=== PATIENT | male | born 1945 | race Caucasian/White ===

== ENCOUNTER 2016-02-23 10:20 | Emergency (ER) | payer MEDICARE, BC ==
[2016-02-23 10:46] VITALS: BP 74/48
--- NOTE | 2016-02-23 11:37 | UC ---
UC General HPI - HPI Summary HPI Summary: PT C/O INCREASED FATIGUE OVER THE PAST FEW MONTHS. HAS HAD INCREASE IN FALLS OVER PAST SEVERAL WEEKS. LAST FALL WAS LAST NIGHT - HAS LEG PAIN AND LEFT ANKLE PAIN. C/O WORSENING VISION AND FAMILY REPORTS HE IS HAVING SOME CONFUSION RECENTLY. APPETITE IS DOWN. NO FEVER. NO MEDICAL CARE IN OVER 3 YEARS. TAKES HIS BP MEDS BUT DOES NOT MONITOR HIS BP AT ALL. - History of Current Complaint Chief Complaint: UCGeneralIllness Stated Complaint: GENERALIZED WEAKNESS Time Seen by Provider: 02/23/16 11:27 Hx Obtained From: Patient, Family/Command And Control - Onset/Duration: Gradual Onset, Lasting Weeks, Still Present Timing: Constant Onset Severity: Moderate Current Severity: Moderate Pain Intensity: 5 Associated Signs & Symptoms: Positive: Confusion, Dizziness, Decreased Oral Intake, Weakness - Allergy/Home Medications Allergies/Adverse Reactions: Allergies Allergy/AdvReac Type Severity Reaction Status Date / Time No Known Allergies Allergy Verified 02/23/16 10:46 Home Medications: Home Medications Lisinopril/HCTZ 20/12.5(NF) [Zestoretic 20/12.5(NF)] 1 tab PO DAILY 02/23/16 [ History Confirmed 02/23/16] Simvastatin (NF) [Zocor (NF)] 80 mg PO 1700 02/23/16 [History Confirmed 02/23/16 ] PMH/Surg Hx/FS Hx/Imm Hx Endocrine History Of: Reports: Dyslipidemia Cardiovascular History Of: Reports: Hypertension - Surgical History Surgical History: None - Family History Known Family History: Negative: Hypertension, Diabetes - Social History Alcohol Use: Occasionally Substance Use Type: None Smoking Status (MU): Former Smoker Review of Systems Constitutional: Fatigue, Other - WEAK AND DIZZY Respiratory: Negative Cardiovascular: Negative Gastrointestinal: Negative All Other Systems Reviewed And Are Negative: Yes Physical Exam Triage Information Reviewed: Yes Appearance: Well-Appearing, No Pain Distress, Well-Nourished Vital Signs: Initial Vital Signs Temp 97.3 F 02/23/16 10:39 Pulse 84 02/23/16 10:39 Resp 18 02/23/16 10:39 BP 74/48 02/23/16 10:39 Pulse Ox 96 02/23/16 10:39 Vital Signs Reviewed: Yes Eyes: Positive: Conjunctiva Clear ENT: Positive: Hearing grossly normal Neck: Positive: Supple, Nontender, No Lymphadenopathy Respiratory Exam: Normal Cardiovascular Exam: Normal Abdomen Description: Positive: Soft Neurological: Positive: Alert Psychological: Positive: Normal Response To Family, Age Appropriate Behavior Skin: Negative: rashes Diagnostics - EKG Cardiac Rate: NL - 81 Cardiac Rhythm: Sinus: Normal Ectopy: None ST Segment: Normal Course/Dx - Differential Dx - Multi-Symptom Provider Diagnoses: HYPOTENSION, DIZZY - Physician Notifications Discussed Patient Care With: DR. HOPE Time Discussed With Above Provider: 11:55 Instructed by Provider To: Transfer - TO [facility] [place] ER BY PRIVATE CAR Discharge - Discharge Plan Condition: Stable Disposition: TRANS [facility]HER [facility] Referrals: Sravan Jang MD [Primary Care Provider] -
== END 2016-02-23 11:55 | disposition short-term general hospital (02) ==
LOC: UCEAST 10:20
DX: I95.9 Hypotension, unspecified (principal); R42 Dizziness and giddiness; Z87.891 Personal history of nicotine dependence
CPT/HCPCS: 93005

== ENCOUNTER 2016-02-23 12:22 | Inpatient (IN) | payer MEDICARE, BC ==
[2016-02-23 13:00] LABS: Hematocrit 41 % (42-52); Hemoglobin 13.6 g/dl (14.0-18.0); Mean Corpuscular HGB Conc 33 g/dl (31-36); Mean Corpuscular Hemoglobin 31 pg (27-31); Mean Corpuscular Volume 93 fL (80-94); Mean Platelet Volume 12 um3 (7.4-10.4); Red Blood Count 4.39 10^6/ul (4.0-5.4); Red Cell Distribution Width 12 % (10.5-15); White Blood Count 11.3 10^3/ul (3.5-10.8)
[2016-02-23 13:12] LABS: BUN/Creatinine Ratio 22.3 (8-20); Calcium 9.4 mg/dL (8.6-10.3); Globulin 2.9 g/dL (2-4); Potassium 4.7 mmol/L (3.5-5.0); Total Protein 6.9 g/dL (6.4-8.9)
[2016-02-23] MEDS ORDERED: NS 0.9% 1000 ML* 1,000 ML IV ONE ×2 (13:12→18:31)
[2016-02-23 13:15] LABS: Troponin I 0.01 ng/mL (<0.04)
--- NOTE | 2016-02-23 13:16 | RAD ---
Indication: Dizziness, weakness. Low blood pressure. Comparison: None. Technique: Upright AP 1306 hours Report: Mild elevation of the LEFT hemidiaphragm with associated minimal LEFT basilar atelectasis. The lungs and pleural spaces are otherwise clear. Negative for pneumothorax. Negative for cardiomegaly. Unremarkable central pulmonary vasculature and mediastinal contours accounting for AP technique. IMPRESSION: Minimal LEFT basilar atelectasis secondary to mild diaphragmatic elevation. No significant abnormality.
[2016-02-23 13:31] LABS: C Reactive Protein 26.72 mg/L (< 5.00)
[2016-02-23] MEDS ORDERED: NS 0.9% 1000 ML* 2,000 ML IV ONE (13:42)
--- NOTE | 2016-02-23 13:56 | RAD ---
HISTORY: Weakness, multiple falls COMPARISONS: None TECHNIQUE: Multiple contiguous axial CT scans were obtained of the head without intravenous contrast. FINDINGS: HEMORRHAGE/INFARCT: There is no hemorrhage or acute infarct. MASSES/SHIFT: There is no mass or shift. EXTRA-AXIAL SPACES: There are no extra-axial fluid collections. SULCI AND VENTRICLES: The sulci and ventricles are normal in size and position for the patient's stated age. CEREBRUM: There are no focal parenchymal abnormalities. BRAINSTEM: There are no focal parenchymal abnormalities. CEREBELLUM: There are no focal parenchymal abnormalities. VESSELS: The vessels are grossly normal. PARANASAL SINUSES: The paranasal sinuses are clear. ORBITS: The orbits are unremarkable. BONES AND SOFT TISSUE: No bone or soft tissue abnormalities are noted. OTHER: None IMPRESSION: NO ACUTE INTRACRANIAL PATHOLOGY.
[2016-02-23] MEDS ORDERED: Insulin REGULAR(*) 100 UNITS in NS 0.9% 100 ML* 100 ML IV SCH ×2 (14:00→21:00)
[2016-02-23] MEDS ORDERED: Ondansetron INJ* 2 MG/ML VIAL IV PRN (14:42)
[2016-02-23] MEDS ORDERED: NS 0.9% 1000 ML* 1,000 ML IV SCH (14:45)
[2016-02-23] MEDS: NS 0.9% 1000 ML* 3,000 ML IV ONE ×3 (15:02→17:40)
--- NOTE | 2016-02-23 15:13 | ED ---
Justyn Samano Matthew, scribed for Mark Grant MD on 02/23/16 at 1322 . Complex/Multi-Sys Presentation - HPI Summary HPI Summary: A 70 y/o male presents to the ED with gradually worsening fatigued for the last 4-5 weeks. Associated symptoms include diffuse body aches, dizziness, SOB w/ exertion, visual changes worse than normal, which has been gradually worsening. He also has a Hx of 2 falls in the past 4-5 weeks as well. The patient denies any LOC, chest pain, diarrhea, fever, and headache. - History Of Current Complaint Chief Complaint: EDDizziness Time Seen by Provider: 02/23/16 12:57 Hx Obtained From: Patient Onset/Duration: Gradual Onset, Lasting Weeks - 4-5, Still Present Timing: Constant Severity Currently: Moderate Severity Initially: Moderate Location: Pain At: - Diffuse Body Aches Associated Signs And Symptoms: Positive: Dizziness, SOB - w/ exertion, Other - gradually worsening visual changes. Negative: Headache, Chest Pain, Diarrhea, Fever - Allergies/Home Medications Allergies/Adverse Reactions: Allergies Allergy/AdvReac Type Severity Reaction Status Date / Time No Known Allergies Allergy Verified 02/23/16 10:46 PMH/Surg Hx/FS Hx/Imm Hx Cardiovascular History: Reports: Hx Hypertension Infectious Disease History: No Infectious Disease History: Denies: Traveled Outside the [place] in Last 30 Days - Family History Known Family History: Negative: Cardiac Disease, Hypertension, Diabetes - Social History Alcohol Use: Occasionally Alcohol Amount: used to be a beer a day until Substance Use Type: Reports: None Smoking Status (MU): Former Smoker Review of Systems Positive: Fatigue Eyes: Negative ENT: Negative Cardiovascular: Negative Negative: Chest Pain Positive: Shortness Of Breath - w/ exertion Gastrointestinal: Negative Genitourinary: Negative Positive: Myalgia - Diffuse body aches Skin: Negative Neurological: Other - Dizziness Psychological: Normal All Other Systems Reviewed And Are Negative: Yes Physical Exam - Summary Physical Exam Summary: VITAL SIGNS: Reviewed. GENERAL: Patient is a well developed and nourished male who is lying comfortable in the stretcher. Patient is not in any acute respiratory distress. HEAD AND FACE: No signs of trauma. No ecchymosis, hematomas or skull depressions. No sinus tenderness. EYES: PERRLA, EOMI x 2, No injected conjunctiva, no nystagmus. No photophobia. EARS: Hearing grossly intact. Ear canals and tympanic membranes are within normal limits. MOUTH: Oropharynx within normal limits. NECK: Supple, trachea is midline, no adenopathy, no JVD, no carotid bruit, no c- spine tenderness, neck with full ROM. No meningeal signs, no Kernig's or brudzinskis signs. CHEST: Symmetric, no tenderness at palpation LUNGS: Clear to auscultation bilaterally. No wheezing or crackles. CVS: Regular rate and rhythm, S1 and S2 present, no murmurs or gallops appreciated. ABDOMEN: Soft, non-tender. No signs of distention. No rebound no guarding, and no masses palpated. Bowel sounds are normal. EXTREMITIES: FROM in all major joints, no edema, no cyanosis or clubbing. NEURO: Alert and oriented x 3. No acute neurological deficits. Speech is normal and follows commands. SKIN: Dry and warm Vital Signs On Initial Exam: Initial Vitals Temp Pulse Resp BP Pulse Ox 97.6 F 89 18 106/64 98 02/23/16 12:22 02/23/16 12:22 02/23/16 12:22 02/23/16 12:22 02/23/16 12:22 - Rhea Coma Scale Coma Scale Total: 15 Diagnostics - Vital Signs Vital Signs Temp Pulse Resp BP Pulse Ox 02/23/16 13:17 80 97/61 02/23/16 12:38 87 20 118/65 96 02/23/16 12:37 92 96 02/23/16 12:22 97.6 F 89 18 106/64 98 - Laboratory Lab Results: Lab Results 02/23/16 Range/Units 12:46 WBC 11.3 H (3.5-10.8) 10^3/ul RBC 4.39 (4.0-5.4) 10^6/ul Hgb 13.6 L (14.0-18.0) g/dl Hct 41 L (42-52) % MCV 93 (80-94) fL MCH 31 (27-31) pg MCHC 33 (31-36) g/dl RDW 12 (10.5-15) % Plt Count 211 (150-450) 10^3/ul MPV 12 H (7.4-10.4) um3 Neut % (Auto) 79.3 (38-83) % Lymph % (Auto) 10.8 L (25-47) % Gem % (Auto) 9.4 H (1-9) % Eos % (Auto) 0.1 (0-6) % Baso % (Auto) 0.4 (0-2) % Absolute Neuts (auto) 9.0 H (1.5-7.7) 10^3/ul Absolute Lymphs (auto) 1.2 (1.0-4.8) 10^3/ul Absolute Monos (auto) 1.1 H (0-0.8) 10^3/ul Absolute Eos (auto) 0 (0-0.6) 10^3/ul Absolute Basos (auto) 0 (0-0.2) 10^3/ul Absolute Nucleated RBC 0 10^3/ul Nucleated RBC % 0 Result Diagrams: 02/23/16 12:46 02/23/16 12:46 Lab Statement: Any lab studies that have been ordered have been reviewed, and results considered in the medical decision making process. - Radiology CXR Xray Interpretation: Positive (See Comments) - IMPRESSION: Minimal LEFT basilar atelectasis secondary to mild diaphragmatic elevation. No significant abnormality. Radiology Interpretation Completed By: Radiologist - CT Brain CT CT Interpretation: No Acute Changes - IMPRESSION: NO ACUTE INTRACRANIAL PATHOLOGY. CT Interpretation Completed By: Radiologist - EKG 12:31 Cardiac Rate: NL - 85 bpm EKG Rhythm: Sinus Rhythm EKG Interpretation: No ST elevations Complex Multi-Symp Course/Dx Assessment/Plan: A 70 y/o male presents to the ED with a CC of having generalized weakness, fatigued, and multiple falls in the past couple of weeks. He denies chest pain, SOB, palpitations, and headache. Test results shows WBC 11.3, sodium 118, CO2 16, Anion Gap 224, BUN 66, creatinine 2.96, and glucose 890. Chest XR read as LEFT basilar atelectasis, but no acute pathology. Head CT shows no acute intracranial pathology. In the ED course, he was given IV fluids 3L and was placed on an insulin drip. At this point, I discussed my physical findings with Dr. Cavazos who will admit the patient into her services. He is hemodynamically stable and AxOx3. - Diagnoses Provider Diagnoses: Diabetes mellitus, new onset, DKA (diabetic ketoacidoses), Hyponatremia, ARF ( acute renal failure) - Physician Notifications Discussed Care Of Patient With: Dr. Cavazos (Hospitalist at 13:58) -- Notified of patient's history and will admit the pateint. Discharge - Discharge Plan Condition: Stable Disposition: ADMITTED TO [facility] documentation as recorded by the Justyn plata Matthew accurately reflects the service I personally performed and the decisions made by Rudy tijerina Walter, MD.
[2016-02-23 15:16] LABS: Urine Bilirubin Negative (Negative); Urine Glucose 3+(>=500 mg/dL) (Negative); Urine Nitrite Negative (Negative)
--- NOTE | 2016-02-23 15:32 | RAD ---
INDICATION: Left ankle injury. TECHNIQUE: 3 views of the left ankle were obtained. FINDINGS: There is diffuse soft tissue swelling. The bones are in normal alignment. There are several calcific densities which project adjacent to the tip of the medial malleolus most consistent with old fracture fragments. No acute fracture is seen. 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 IMPRESSION: Soft tissue swelling, no acute fracture is seen.
[2016-02-23] MEDS: Acetaminophen TAB* 325 MG PO PRN ×2 (17:34→21:27)
[2016-02-23] MEDS: Atorvastatin* 40 MG TAB PO SCH (17:34)
[2016-02-23 20:05] LABS: BUN/Creatinine Ratio 25.2 (8-20); Calcium 8.1 mg/dL (8.6-10.3); EGFR African American 36.9 (>60); EGFR Non-African American 28.7 (>60); Potassium 4.1 mmol/L (3.5-5.0)
[2016-02-23] MEDS: D5W 1/2 NS KCl 20 Meq 1000 ML* 1,000 ML IV PRN (21:26)
[2016-02-23] MEDS: Heparin VIAL(*) 5000 UNITS/ML VIAL (FIVE THOUSAND) SUBCUT SCH (21:27)
--- NOTE | 2016-02-24 01:52 | HP ---
HISTORY AND PHYSICAL: DATE OF ADMISSION: 02/23/16 PRIMARY CARE PROVIDER: None. ATTENDING PHYSICIAN WHILE IN THE HOSPITAL: Prem Humphries MD * (report dictated by Kapil Brown NP) CHIEF COMPLAINT: 1. Weakness. 2. Dizziness. 3. Polyuria. HISTORY OF PRESENT ILLNESS: Mr. Billy is a 70-year-old male patient with a history of hypertension and hyperlipidemia and question of history of prediabetes. He comes in today. Since the last 4 to 6 weeks, he has been having a progressive decline particularly in his strength. He has been very weak. He has been feeling dizzy particularly with position change. He states that he has fallen twice in the last week or so. He denies any fevers or chills. No abdominal pain. There has been a decreased appetite. He states he has been drinking copious amounts of water. In addition to this, he has been urinating frequently as well. He denies any dysuria or any pain with urination. He states that he came in today because he just was not getting any better. There was concern, he says his mouth has been feeling dry. He has not had any URI symptoms and he has not had any shortness of breath or any chest discomfort or any vomiting. He has been taking his lisinopril and hydrochlorothiazide as prescribed along with all this. He was ultimately evaluated in the ER. He was found to have a sugar of 809. There were concerns for DKA versus HHS. The hospital service was asked to evaluate for admission. PAST MEDICAL HISTORY: Significant for: 1. Hyperlipidemia. 2. REBECCA, although not treated. 3. Hyperlipidemia. PAST SURGICAL HISTORY: Denied. HOME MEDICATIONS: 1. Simvastatin 80 mg daily. 2. Lisinopril/hydrochlorothiazide 1 tablet p.o. daily. ALLERGIES TO MEDICATIONS: No known drug allergies. FAMILY HISTORY: Mother had leukemia. Father had a history of living at the age of 90 and passing of natural causes. SOCIAL HISTORY: He is a former smoker. He does drink a beer a day. He is , with children. Surrogate decision maker is his . REVIEW OF SYSTEMS: There is no documented fever. He denied having any significant weight change. There is blurry vision, but no double vision. No ear discharge. No rhinorrhea. No sore throat. No thyroid enlargement. Denies having any chest pain. There is no orthopnea. No nocturnal dyspnea. No abdominal pain. No nausea. No vomiting. No dysuria. No frequency. No loss of consciousness. No pruritus. No skin ulcerations. Review of 14 systems completed, all others were negative. PHYSICAL EXAMINATION GENERAL: At this time, Mr. Billy is a 70-year-old male patient. He is sitting in the ER stretcher. He does not appear to be in any acute distress. He is awake and he is alert. VITAL SIGNS: Reveals blood pressure currently of 149/80, pulse 80, respirations 18, O2 sat 96%, and temperature 97.6. HEENT: Head is atraumatic, normocephalic. Eyes: EOMs are intact. Sclerae anicteric. Not pale. Throat: Oral mucosa appears to be dry. No oropharyngeal erythema. NECK: Supple. LUNGS: Clear to auscultation bilaterally. No wheezes, rales, or rhonchi. HEART: Sounds S1, S2. Regular rate and rhythm. No murmurs, rubs, or gallops. ABDOMEN: Soft. It is flat, nontender. Bowel sounds present. EXTREMITIES: Pulses 2+ throughout. Able to move all 4 extremities with 5/5 strength. NEUROLOGIC: He is awake, alert, and oriented x3. Tongue midline. Data Entry Assistant are equal. No gross focal deficits. SKIN: Grossly intact. DIAGNOSTIC STUDIES/LAB DATA: Labs today reveal a WBC of 11.3, RBC of 4.39, hemoglobin of 13.6, hematocrit of 41, and platelet count 211. His INR was 0.93 and PTT at 24.3. Sodium 118, his chloride was 97, potassium 4.7, BUN 66, creatinine 2.96, glucose of 890, lactic 2.4, and he had a calcium of 9.4. Total bilirubin 1.0, AST 24, ALT 31, and alkaline phosphatase 66. Troponin is 0.01. CK 94 and myoglobulin 501. CRP 26. BNP of 37. Urine is pending. He had a brain CT obtained today, which revealed no acute intracranial pathology. He had a chest x-ray obtained today, which revealed mild left basilar atelectasis secondary to mild diaphragmatic elevation. No acute abnormality. He had an EKG obtained today as well, which showed a sinus rhythm at a rate of 85, no ST elevations or T-wave inversions. There is no previous EKG for comparison. Old medical records are reviewed. ASSESSMENT AND PLAN: Mr. Billy is a 70-year-old male patient coming into the ER today with complaints of dizziness, fatigue, and weakness for the last 4 to 6 weeks along with polyuria and polydipsia and on evaluation found to be in diabetic ketoacidosis versus hyperglycemic hyperosmolar syndrome. He will be admitted under inpatient status for: 1. Hyperglycemia: At this point, I suspect he has a mixed picture of diabetic ketoacidosis versus hyperglycemic hyperosmolar syndrome. He is mildly acidotic. He appears to be profoundly dehydrated. The plan at this time is to give him 5 L bolus of normal saline. He has already been started here in the ER and normal saline at 200 an hour. Frequent BMPs every 4 hours. In addition to this, I am placing him on an insulin drip following his electrolytes closely and then switching him to D5 half normal with 28K at 125 an hour when his sugar drops less than 250. I am keeping him n.p.o. until his anion gap closes and his gap right now is about 24. We will repeat his labs at about 1900 hours when he has been on his insulin for about 4 hours. We will check an A1c. I suspect this is going to be elevated. 2. Hyponatremia: He corrects to about 125. I suspect he is low because he is profoundly dehydrated, so at this point we will monitor this closely. I suspect as we fix the sugar the sodium is going to improve. 3. Acute renal failure: Again, this is probably prerenal but I am going to get a FENa and a bladder scan. We will hydrate him aggressively and we will monitor his BMPs closely. He is not having any pain, so I do not think there is any obstructive uropathy. 4. New onset diabetes: I will place a nutrition consult and placed a consult to [facility]. I will put him on insulin drip to resolve the diabetic ketoacidosis/ hyperglycemic hyperosmolar syndrome. In addition to this, we will probably end up being starting him on oral agents along with subcu insulin in the form of Lantus. 5. Hypertension: He is on lisinopril and hydrochlorothiazide. In the setting of him being profoundly dehydrated, I am going to hold his medications and in the setting of him also having hypotension. When he first came, his blood pressures were in the 90 systolic. In addition to this, he is in acute renal failure, so we will add back on blood pressure medications as he starts to improve. 6. Hyperlipidemia: We will check lipids in the morning. In addition to this, we will continue on Zocor. 7. DVT prophylaxis: He is moderate risk. He will be placed on heparin subcu. 8. Code status: Full code. 9. Fluid, electrolytes, and nutrition: He is n.p.o. We will follow electrolytes closely and replace and replenish as needed. TIME SPENT: Time spent on the admission was 60 minutes; greater than half the time was spent [id number] with the patient obtaining my history and physical, the other half time is spent going over the plan of care with the patient and implementing plan of care. I discussed the plan of care with my attending, Dr. Humphries. He is in agreement. KAPIL BROWN, MALINDA [id number]/CPS #: [id number] CHELSI
[2016-02-24] MEDS: Insulin LISPRO* 1 UNITS UNIT SUBCUT SCH ×10 (03:04→22:36)
[2016-02-24 03:43] LABS: BUN/Creatinine Ratio 23.6 (8-20); Calcium 7.7 mg/dL (8.6-10.3); EGFR African American 47.3 (>60); EGFR Non-African American 36.8 (>60); Potassium 4.1 mmol/L (3.5-5.0)
[2016-02-24] MEDS: Heparin VIAL(*) 5000 UNITS/ML VIAL (FIVE THOUSAND) SUBCUT SCH ×2 (05:41→13:38)
[2016-02-24 05:56] LABS: Hematocrit 33 % (42-52); Hemoglobin 11.4 g/dl (14.0-18.0); Mean Corpuscular HGB Conc 35 g/dl (31-36); Mean Corpuscular Hemoglobin 32 pg (27-31); Mean Corpuscular Volume 90 fL (80-94); Mean Platelet Volume 11 um3 (7.4-10.4); Red Blood Count 3.62 10^6/ul (4.0-5.4); Red Cell Distribution Width 12 % (10.5-15); White Blood Count 7.6 10^3/ul (3.5-10.8)
[2016-02-24 06:10] LABS: BUN/Creatinine Ratio 22.9 (8-20); Calcium 7.5 mg/dL (8.6-10.3); EGFR African American 49.5 (>60); EGFR Non-African American 38.5 (>60); HDL Cholesterol 28.5 mg/dL; Potassium 4.4 mmol/L (3.5-5.0)
[2016-02-24] MEDS: D5W 1/2 NS KCl 20 Meq 1000 ML* 1,000 ML IV PRN (07:53)
[2016-02-24] MEDS ORDERED: Dextrose 50% Syringe 50 ML* 25 GM/50 ML SYRINGE IV PUSH PRN (09:40)
[2016-02-24] MEDS ORDERED: NS 0.9% 1000 ML* 1,000 ML IV SCH (09:41)
--- NOTE | 2016-02-24 09:52 | PN ---
Subjective Date of Service: 02/24/16 Interval History: Seen with at bedside Feel much better since arrival including decreased fatigue and increased energy Is hungry and would like something to eat Has no other complaints Objective Active Medications: Acetaminophen (Tylenol Tab*) 650 mg PO Q4H PRN PRN Reason: FEVER/PAIN Last Admin: 02/23/16 21:27 Dose: 650 mg Atorvastatin Calcium (Lipitor*) 40 mg PO 1700 [facility] Last Admin: 02/23/16 17:34 Dose: 40 mg Dextrose (D50w Syringe 50 Ml*) 12.5 gm IV PUSH .FOR FS < 60 - SS PRN PRN Reason: FS < 60 Heparin Sodium (Porcine) (Heparin Vial(*)) 5,000 units SUBCUT Q8HR [facility] Last Admin: 02/24/16 05:41 Dose: 5,000 units Sodium Chloride (Ns 0.9% 1000 Ml*) 1,000 mls @ 150 mls/hr IV PER RATE [facility] Insulin Glargine (Lantus(*)) 20 units SUBCUT Q12H [facility] Insulin Human Lispro (Humalog*) 0 units SUBCUT ACHS [facility] PRN Reason: Protocol Insulin Human Lispro (Humalog*) 0 units SUBCUT ACHS [facility] PRN Reason: Protocol Ondansetron HCl (Zofran Inj*) 4 mg IV Q6H PRN PRN Reason: NAUSEA Vital Signs 02/23/16 02/23/16 02/23/16 15:00 15:14 15:20 Temperature 97.9 F 97.9 F Pulse Rate 83 80 Respiratory 21 22 Rate Blood Pressure 95/80 117/74 (mmHg) O2 Sat by Pulse 98 98 Oximetry 02/23/16 02/23/16 02/23/16 15:30 15:48 16:00 Temperature Pulse Rate 79 82 Respiratory 23 21 Rate Blood Pressure 117/74 111/60 115/56 (mmHg) O2 Sat by Pulse 99 98 Oximetry 02/23/16 02/23/16 02/23/16 16:15 16:30 16:45 Temperature Pulse Rate 79 85 72 Respiratory 17 20 15 Rate Blood Pressure 93/59 101/51 86/53 (mmHg) O2 Sat by Pulse 97 98 97 Oximetry 02/23/16 02/23/16 02/23/16 17:00 17:15 17:30 Temperature Pulse Rate 74 74 77 Respiratory 14 17 16 Rate Blood Pressure 83/50 94/48 89/50 (mmHg) O2 Sat by Pulse 99 98 96 Oximetry 02/23/16 02/23/16 02/23/16 17:45 17:48 17:51 Temperature Pulse Rate 75 71 71 Respiratory 22 21 21 Rate Blood Pressure 78/45 80/45 (mmHg) O2 Sat by Pulse 97 97 96 Oximetry 02/23/16 02/23/16 02/23/16 18:00 18:20 19:00 Temperature 98.4 F Pulse Rate 71 67 Respiratory 15 17 Rate Blood Pressure 68/41 74/48 (mmHg) O2 Sat by Pulse 96 98 Oximetry 02/23/16 02/23/16 02/23/16 19:40 20:00 20:05 Temperature 98.4 F Pulse Rate 68 71 Respiratory 18 19 Rate Blood Pressure 94/49 (mmHg) O2 Sat by Pulse 97 97 Oximetry 02/23/16 02/23/16 02/23/16 20:30 21:00 21:30 Temperature Pulse Rate 66 63 67 Respiratory 17 17 18 Rate Blood Pressure 93/37 92/43 99/59 (mmHg) O2 Sat by Pulse 95 96 95 Oximetry 02/23/16 02/23/16 02/24/16 22:00 23:00 00:00 Temperature 98.8 F Pulse Rate 64 94 Respiratory 19 19 18 Rate Blood Pressure 101/53 (mmHg) O2 Sat by Pulse 94 95 Oximetry 02/24/16 02/24/16 02/24/16 01:00 01:07 01:11 Temperature Pulse Rate 65 65 65 Respiratory 17 16 17 Rate Blood Pressure 76/45 79/45 (mmHg) O2 Sat by Pulse 94 90 85 Oximetry 02/24/16 02/24/16 02/24/16 01:12 01:15 01:22 Temperature Pulse Rate 65 65 64 Respiratory 17 18 16 Rate Blood Pressure 76/38 77/43 94/49 (mmHg) O2 Sat by Pulse 89 94 95 Oximetry 02/24/16 02/24/16 02/24/16 01:30 01:48 02:00 Temperature Pulse Rate 65 60 Respiratory 18 19 Rate Blood Pressure 100/56 102/53 (mmHg) O2 Sat by Pulse 94 96 96 Oximetry 02/24/16 02/24/16 02/24/16 02:30 03:00 03:30 Temperature Pulse Rate 64 61 61 Respiratory 14 17 17 Rate Blood Pressure 113/53 104/53 109/52 (mmHg) O2 Sat by Pulse 97 97 98 Oximetry 02/24/16 02/24/16 02/24/16 03:52 04:00 04:09 Temperature 98.8 F Pulse Rate 57 Respiratory 17 17 Rate Blood Pressure 109/54 (mmHg) O2 Sat by Pulse 98 Oximetry 02/24/16 02/24/16 02/24/16 04:30 05:00 05:30 Temperature Pulse Rate 62 65 67 Respiratory 15 19 17 Rate Blood Pressure 98/49 121/68 106/68 (mmHg) O2 Sat by Pulse 98 97 97 Oximetry 02/24/16 02/24/16 02/24/16 06:00 06:30 07:00 Temperature Pulse Rate 80 75 73 Respiratory 21 18 20 Rate Blood Pressure 115/66 113/64 93/65 (mmHg) O2 Sat by Pulse 97 98 99 Oximetry 02/24/16 02/24/16 02/24/16 07:30 07:44 08:00 Temperature 97.9 F Pulse Rate 72 76 Respiratory 18 18 Rate Blood Pressure 91/59 92/64 (mmHg) O2 Sat by Pulse 99 98 Oximetry 02/24/16 02/24/16 08:30 09:00 Temperature Pulse Rate 77 67 Respiratory 18 18 Rate Blood Pressure 85/72 100/57 (mmHg) O2 Sat by Pulse 97 98 Oximetry Oxygen Devices in Use Now: None Appearance: sitting in chair, interactive, NAD Eyes: No Scleral Icterus, PERRLA Ears/Nose/Mouth/Throat: NL Teeth, Lips, Gums, Mucous Membranes Moist Neck: NL Appearance and Movements; NL JVP, Trachea Midline Respiratory: Symmetrical Chest Expansion and Respiratory Effort, Clear to Auscultation Cardiovascular: NL Sounds; No Murmurs; No JVD, RRR Abdominal: NL Sounds; No Tenderness; No Distention, No Hepatosplenomegaly Lymphatic: No Cervical Adenopathy Extremities: No Edema, No Clubbing, Cyanosis Skin: No Rash or Ulcers Neurological: Alert and Oriented x 3, NL Muscle Strength and Tone, - - [id number] intact Result Diagrams: 02/24/16 05:47 02/24/16 05:47 Additional Lab and Data: Lab Results 02/23/16 Range/Units 12:46 WBC 11.3 H (3.5-10.8) 10^3/ul RBC 4.39 (4.0-5.4) 10^6/ul Hgb 13.6 L (14.0-18.0) g/dl Hct 41 L (42-52) % MCV 93 (80-94) fL MCH 31 (27-31) pg MCHC 33 (31-36) g/dl RDW 12 (10.5-15) % Plt Count 211 (150-450) 10^3/ul MPV 12 H (7.4-10.4) um3 Neut % (Auto) 79.3 (38-83) % Lymph % (Auto) 10.8 L (25-47) % [place] % (Auto) 9.4 H (1-9) % Eos % (Auto) 0.1 (0-6) % Baso % (Auto) 0.4 (0-2) % Absolute Neuts (auto) 9.0 H (1.5-7.7) 10^3/ul Absolute Lymphs (auto) 1.2 (1.0-4.8) 10^3/ul Absolute Monos (auto) 1.1 H (0-0.8) 10^3/ul Absolute Eos (auto) 0 (0-0.6) 10^3/ul Absolute Basos (auto) 0 (0-0.2) 10^3/ul Absolute Nucleated RBC 0 10^3/ul Nucleated RBC % 0 Microbiology and Other Data: Microbiology 02/23/16 15:10 Nasal Screen MRSA (PCR)([facility]) - Final Nasal Mrsa Negative Assess/Plan/Problems-Billing Assessment: 70 yo M p/w new dx DM2 with DKA - Patient Problems (1) DKA (diabetic ketoacidoses) Comment: Stop D5 1/2 NS c/w NS 150cc/hr start lantus 20 BID lispro SS with insulin coverage Nutrition c/s DM educator as outpatient check RALPH, islet cell abs (2) Hyperlipidemia Comment: atorvastatin (3) Obstructive sleep apnea Comment: By history Not on treatment Will need outpatient sleep study (4) DVT prophylaxis Comment: HSQ
[2016-02-24] MEDS ORDERED: Insulin GLARGINE(*) 1 UNITS UNIT SUBCUT SCH (10:00)
[2016-02-24] MEDS: Atorvastatin* 40 MG TAB PO SCH (16:45)
[2016-02-24] MEDS ORDERED: Ziprasidone IM INJ* 20 MG/ML VIAL IM ONE (22:06)
[2016-02-24] MEDS: Insulin GLARGINE(*) 1 UNITS UNIT SUBCUT SCH (22:37)
--- NOTE | 2016-02-24 23:13 | PN ---
Progress Note - Progress Note Note: Called to ICU to address patient agitation. Upon arrival, Mr Billy was dressed and standing in the coles in front of ICU 8. We had a lengthy conversation regarding his concerns. He is quite paranoid. He references the saO2 monitor & IV stating, "These are cute theatrical tricks. " He threatens to throw a chair out the window, threatens to throw the telephone or "anything else I find". He does threaten to kill himself, but recants this statement quickly. He states he feels we are trying to kill him, that he is being held against his will, and forced into treatment. When asked how he was to going to get home, he stated he will go downstairs and get a cab. When asked what he would do if no cabs are present, he could not come up with a plan. His & son arrived and were unable to convince him to fully comply, but were able to convince him to take a 20mg IM injection of ziprasidone which along with the arrival of a 2nd son eventually was able to calm him.
[2016-02-25] MEDS: Insulin LISPRO* 1 UNITS UNIT SUBCUT SCH ×11 (00:32→20:38)
[2016-02-25] MEDS: Insulin GLARGINE(*) 1 UNITS UNIT SUBCUT SCH ×3 (00:34→20:30)
[2016-02-25] MEDS: Heparin VIAL(*) 5000 UNITS/ML VIAL (FIVE THOUSAND) SUBCUT SCH ×4 (00:38→21:24)
[2016-02-25 06:42] LABS: Comments Flag Yes; Hematocrit 40 % (42-52); Hemoglobin 13.5 g/dl (14.0-18.0); Mean Corpuscular HGB Conc 34 g/dl (31-36); Mean Corpuscular Hemoglobin 32 pg (27-31); Mean Corpuscular Volume 93 fL (80-94); Red Blood Count 4.24 10^6/ul (4.0-5.4); Red Cell Distribution Width 12 % (10.5-15); White Blood Count 6.5 10^3/ul (3.5-10.8)
[2016-02-25 06:43] LABS: Add Diff/Slide Review? Slide Review Added
[2016-02-25 06:46] LABS: BUN/Creatinine Ratio 18.8 (8-20); EGFR Non-African American 48.2 (>60); Potassium 3.5 mmol/L (3.5-5.0)
[2016-02-25] MEDS ORDERED: Potassium Chlor TAB* 20 MEQ TAB.ER PO ONE (08:31)
[2016-02-25] MEDS ORDERED: Insulin GLARGINE(*) 1 UNITS UNIT SUBCUT SCH (09:00)
[2016-02-25] MEDS: Atorvastatin* 40 MG TAB PO SCH (18:09)
--- NOTE | 2016-02-25 18:36 | PN ---
Subjective Date of Service: 02/25/16 Interval History: Seen with son and daughter present Events from overnight reviewed He does not remember much of previous night when police were called to ICU Notes he was "in a different reality." Feels he is back to baseline now although this events and new dx have caused him to reevaluate his life and values Family also feels he is back to baseline He does feel scared because of his change overnight which he is concerned could happen again here or at home. Objective Active Medications: Acetaminophen (Tylenol Tab*) 650 mg PO Q4H PRN PRN Reason: FEVER/PAIN Last Admin: 02/23/16 21:27 Dose: 650 mg Atorvastatin Calcium (Lipitor*) 40 mg PO 1700 [facility] Last Admin: 02/25/16 18:09 Dose: 40 mg Dextrose (D50w Syringe 50 Ml*) 12.5 gm IV PUSH .FOR FS < 60 - SS PRN PRN Reason: FS < 60 Heparin Sodium (Porcine) (Heparin Vial(*)) 5,000 units SUBCUT Q8HR [facility] Last Admin: 02/25/16 13:00 Dose: 5,000 units Sodium Chloride (Ns 0.9% 1000 Ml*) 1,000 mls @ 150 mls/hr IV PER RATE [facility] Last Admin: 02/24/16 13:52 Dose: 150 mls/hr Insulin Glargine (Lantus(*)) 30 units SUBCUT Q12H [facility] Last Admin: 02/25/16 08:49 Dose: 30 units Insulin Human Lispro (Humalog*) 0 units SUBCUT ACHS [facility] PRN Reason: Protocol Last Admin: 02/25/16 18:08 Dose: 3 units Insulin Human Lispro (Humalog*) 0 units SUBCUT ACHS [facility] PRN Reason: Protocol Last Admin: 02/25/16 18:09 Dose: 2 unit Ondansetron HCl (Zofran Inj*) 4 mg IV Q6H PRN PRN Reason: NAUSEA Vital Signs 02/24/16 02/24/16 02/24/16 19:00 20:00 21:00 Temperature 100.6 F 100.6 F Pulse Rate 86 80 Respiratory 21 20 16 Rate Blood Pressure 120/71 143/77 (mmHg) O2 Sat by Pulse 96 96 Oximetry 02/24/16 02/24/16 02/25/16 22:00 23:00 00:21 Temperature 97.8 F Pulse Rate Respiratory 20 16 14 Rate Blood Pressure (mmHg) O2 Sat by Pulse Oximetry 02/25/16 02/25/16 02/25/16 01:47 04:00 07:36 Temperature 97.6 F 97.8 F 98.4 F Pulse Rate 95 82 80 Respiratory 20 18 20 Rate Blood Pressure 163/92 119/71 126/81 (mmHg) O2 Sat by Pulse 100 99 100 Oximetry 02/25/16 02/25/16 08:00 11:17 Temperature 98.4 F Pulse Rate 84 Respiratory 20 16 Rate Blood Pressure 135/87 (mmHg) O2 Sat by Pulse 97 Oximetry Oxygen Devices in Use Now: None Appearance: NAD Eyes: No Scleral Icterus Ears/Nose/Mouth/Throat: NL Teeth, Lips, Gums, Clear Oropharnyx, Mucous Membranes Moist Neck: NL Appearance and Movements; NL JVP, Trachea Midline Respiratory: Symmetrical Chest Expansion and Respiratory Effort, Clear to Auscultation Cardiovascular: NL Sounds; No Murmurs; No JVD, RRR Abdominal: NL Sounds; No Tenderness; No Distention, No Hepatosplenomegaly Lymphatic: No Cervical Adenopathy Extremities: No Edema, No Clubbing, Cyanosis Skin: No Rash or Ulcers Neurological: Alert and Oriented x 3, NL Muscle Strength and Tone Result Diagrams: 02/25/16 05:46 02/25/16 05:46 Additional Lab and Data: Lab Results 02/23/16 Range/Units 12:46 WBC 11.3 H (3.5-10.8) 10^3/ul RBC 4.39 (4.0-5.4) 10^6/ul Hgb 13.6 L (14.0-18.0) g/dl Hct 41 L (42-52) % MCV 93 (80-94) fL MCH 31 (27-31) pg MCHC 33 (31-36) g/dl RDW 12 (10.5-15) % Plt Count 211 (150-450) 10^3/ul MPV 12 H (7.4-10.4) um3 Neut % (Auto) 79.3 (38-83) % Lymph % (Auto) 10.8 L (25-47) % [place] % (Auto) 9.4 H (1-9) % Eos % (Auto) 0.1 (0-6) % Baso % (Auto) 0.4 (0-2) % Absolute Neuts (auto) 9.0 H (1.5-7.7) 10^3/ul Absolute Lymphs (auto) 1.2 (1.0-4.8) 10^3/ul Absolute Monos (auto) 1.1 H (0-0.8) 10^3/ul Absolute Eos (auto) 0 (0-0.6) 10^3/ul Absolute Basos (auto) 0 (0-0.2) 10^3/ul Absolute Nucleated RBC 0 10^3/ul Nucleated RBC % 0 Microbiology and Other Data: Microbiology 02/23/16 15:10 Nasal Screen MRSA (PCR)([facility]) - Final Nasal Mrsa Negative Assess/Plan/Problems-Billing Assessment: 70 yo M p/w new dx DM2 with DKA with stay complicated by ICU acquired delerium - Patient Problems (1) DKA (diabetic ketoacidoses) Comment: Lantus incresaed to 30 units BID adjust final dose in AM bsaed on preprandial FSG provided lantus solostar pen to nursing who will review its use tonight Dietary counseling performed this evening with pt and family lispro SS with insulin coverage DM educator as outpatient check RALPH, islet cell abs pending (2) Hyperlipidemia Comment: atorvastatin (3) Obstructive sleep apnea Comment: By history Not on treatment Will need outpatient sleep study (4) Acute delirium Comment: ICU acquired, acute Window shades opened counseled family on frequent reorientation hospital equipement and monitoring minimalized (5) DVT prophylaxis Comment: HSQ
[2016-02-25] MEDS: metFORMIN* 500 MG TAB PO SCH (19:16)
[2016-02-26] MEDS: Heparin VIAL(*) 5000 UNITS/ML VIAL (FIVE THOUSAND) SUBCUT SCH (05:39)
[2016-02-26 06:09] LABS: BUN/Creatinine Ratio 13.3 (8-20); Calcium 7.9 mg/dL (8.6-10.3); EGFR African American 66.8 (>60); Magnesium 1.9 mg/dL (1.9-2.7); Potassium 3.5 mmol/L (3.5-5.0)
[2016-02-26] MEDS: metFORMIN* 500 MG TAB PO SCH (07:54)
[2016-02-26 09:38] VITALS: BP 119/66
[2016-02-26] MEDS: Insulin LISPRO* 1 UNITS UNIT SUBCUT SCH ×4 (09:55→13:14)
[2016-02-26] MEDS: Insulin GLARGINE(*) 1 UNITS UNIT SUBCUT SCH (09:56)
[2016-02-26 11:20] LABS: C-Peptide ng/ml 4.9 ng/mL (1.1 - 4.4)
--- NOTE | 2016-02-27 07:24 | DS ---
DISCHARGE SUMMARY: DATE OF ADMISSION: 02/23/16 DATE OF DISCHARGE: 02/26/16 PRIMARY CARE PROVIDER: Dr. Prem Humphries. PRIMARY DIAGNOSIS: Diabetic ketoacidosis. SECONDARY DIAGNOSES: 1. Hyperlipidemia. 2. Suspected obstructive sleep apnea. 3. Hypertension. 4. Acute kidney injury. 5. ICU-acquired delirium. DISCHARGE MEDICATIONS: Include: 1. Simvastatin 80 mg in the evening. 2. Metformin 500 mg twice daily, new medication. 3. Lisinopril 20 mg daily. 4. Insulin glargine via SoloSTAR 60 units daily. Please note the discontinuation of hydrochlorothiazide at this time secondary to control blood pressure. PERTINENT LABORATORY DATA: 1. Hemoglobin A1c on presentation to the hospital, 17.8%. 2. Creatinine on presentation 2.96, on discharge 1.35. 3. Total cholesterol 122, LDL 35, HDL 28, triglycerides 292. HISTORY OF PRESENT ILLNESS AND HOSPITAL COURSE: This is a 70-year-old man, past medical history is outlined in the history of present illness on day of admission including hypertension, hyperlipidemia, who has had several months of progressive decline, punctuated by several weeks of worsening decline, increasing weakness, polyuria and polydipsia. He presented to the hospital because of increasing fatigue, polyuria and polydipsia found with presenting glucose on basic metabolic panel 890, documented hyponatremia 118 likely reflective of this, elevated blood sugar. He was admitted to the ICU on insulin drip. No ABG was performed on admission; however, his anion gap was 24 , bicarb of 16 on presentation. He improved quickly, was transitioned over to Lantus insulin, which was uptitrated over the course of following 48 hours. Of note, the first night of his hospital stay, the patient became acutely delirious , required police presence, to be restrained, and received Geodon. The following day, he had no recollection of events, so back to his usual self. He had not had subsequent events on the following night of admission. Extensive conversations were undergone with the patient and his family regarding diabetic administration of insulin, fingerstick checking as well as dietary and exercise advice. The patient will follow with this author as well as followup was made with [facility]. Counseling regarding symptoms of hypoglycemia was undertaken with the patient prior to discharge. Reasons to return to the hospital including, but no limited to worsening of symptoms, polyuria, polydipsia, fever, chills, night sweats, inability to obtain or tolerate his medications, inability to test his blood sugar, inability to complete _FSG____ log, diarrhea, GI upset were discussed with the patient, and he acknowledged understanding. TIME SPENT: Greater than 60 minutes was spent in discharge of this patient, greater than half was spent [id number] with the patient. CC: Dr. Prem Humphries; [facility], Rhea Franklin* [id number]/[facility] #: [id number] [facility] HOS[facility]ITALAnna
[2016-02-29 16:51] LABS: Anti GAD 65 Antibody 0.64 nmol/L (<= 0.02)
== END 2016-02-26 15:00 | disposition home or self-care (01) | DRG 638 ==
LOC: ED 12:22 → ICU 14:34 → MED 02-25 00:54
PROVIDERS: ADMIT Nurse Practitioner Family; ATTEND Internal Medicine
DX: E13.10 Other specified diabetes mellitus with ketoacidosis without coma (principal); N17.9 Acute kidney failure, unspecified; E87.1 Hypo-osmolality and hyponatremia; G47.33 Obstructive sleep apnea (adult) (pediatric); I10 Essential (primary) hypertension; R41.0 Disorientation, unspecified; E78.5 Hyperlipidemia, unspecified; E86.0 Dehydration; Z87.891 Personal history of nicotine dependence; Z80.6 Family history of leukemia; Z79.84 Long term (current) use of oral hypoglycemic drugs; Z79.899 Other long term (current) drug therapy
CPT/HCPCS: 36415; 70450; 71010; 80048; 80053; 80061; 81003; 82550; 82553; 82947; 83036; 83605; 83735; 83874; 83880; 84484; 84681; 85025; 85610; 85730; 86140; 86341; 87086; 87641; 93005; 99212; A9270-GY; G0463; J1644; J1815; J3486